=== PATIENT | female | born 1935 | race African-American/Black ===

== ENCOUNTER 2016-10-28 20:53 | Emergency (ER) | payer OTHER, MEDICARE ==
[~2016-10-28] VITALS: Ht 144.8 cm; Wt 74.8 kg
--- NOTE | ~2016-10-28 | CT16 ---
[facility] A Service of [facility] RADIOLOGY TEXT RESULTS PATIENT: TRICIA MOORE LOCATION: SED : 35 UNIT #: [id number] AGE: [address]: Jason Hansen MD SEX: F ORDER DR: [id number] [place] [id number] E MR#: [id number] Acc #: [id number] NAME: TRICIA MOORE. : 1935 SEX: F STUDY DATE/TIME: 10/28/2016 23:34 UNIT: SED ROOM: STUDY DESCRIPTION: CT Angio Chest for PE Attending Physician: Jason Hansen M.D. Ordering Physician: Jason Hansen M.D. Primary Care Physician: Almas Greene M.D. MEDICAL IMAGING REPORT This report is preliminary unless electronic signature is present. EXAM CT chest with contrast, pulmonary arteriography protocol, 10/28/2016 HISTORY 81-year-old female in the ED complaining of chest pain and diffuse body pain today. Back surgery [address] examination of the chest with IV contrast using pulmonary arteriography protocol. CTA MIP images of the pulmonary arteries were reformatted in multiple planes. This CT exam was performed with one or more of the following radiation dose reduction techniques: automatic exposure control, adjustment of mA and/or kV according to patient size, and iterative reconstruction. FINDINGS No pulmonary embolism is demonstrated. Thoracic aorta is normal in caliber with no aneurysm or dissection. Mild cardiomegaly. No pericardial effusion. The lungs are expanded and clear with the exception of mild scarring or atelectasis in the lung bases. No pneumothorax or pleural effusion. No suspicious mass or adenopathy within the chest. Generalized enlargement of the heterogeneous thyroid gland may represent multinodular goiter. Limited images through the uppermost abdomen show moderate extrahepatic bile duct dilatation with the common hepatic duct measuring about 1.7 cm and the common bile duct measuring up to 2.0 cm with mild intrahepatic bile duct dilatation. Cholecystectomy. Similar findings were present on the previous study of 08/31/2014. IMPRESSION [facility] A Service of [facility] RADIOLOGY TEXT RESULTS PATIENT: TRICIA MOORE [place] [facility] [place]IT #: [id number] AGE: [address]: Jason Hansen MD SEX: F ORDER DR: 1. No evidence of pulmonary embolism or other acute vascular abnormality within the chest. 2. Mild cardiomegaly. No pericardial effusion. 3. Mild scarring and/or atelectasis in the lung bases. Lungs clear. 4. Heterogeneous, diffusely enlarged thyroid gland. 5. Intrahepatic and extrahepatic bile duct dilatation as detailed above. Previous cholecystectomy. This is unchanged since 08/31/2014. Dictated by... Antonino Schaeffer M.D. THIS IS AN ELECTRONICALLY VERIFIED REPORT Antonino Schaeffer M.D. at 11/01/2016 11:06 PM Bela TD: 10/29/2016 13:08 JOB #: [id number] MEDICAL IMAGING REPORT Page 1 of 1
--- NOTE | ~2016-10-28 | EKG ---
PATIENT: TRICIA MOORE UNIT #: [id number] Ventricular Rate: 101 BPM Atrial Rate: 101 BPM P-R Interval: 88 ms QRS Duration: 116 ms Q-T Interval: 374 ms QTC Calculation(Bezet): 484 ms P Clinton: 119 degrees Calculated R Clinton: 7 degrees Calculated T Clinton: 147 degrees Diagnosis Line: Sinus tachycardia with short WA Diagnosis Line: Left ventricular hypertrophy with QRS widening and Diagnosis Line: repolarization abnormality Diagnosis Line: Abnormal ECG Diagnosis Line: When compared with ECG of 30-AUG-2014 22:04, Diagnosis Line: WA interval has decreased Diagnosis Line: Vent. rate has increased BY 38 BPM Diagnosis Line: ST now depressed in Lateral leads Diagnosis Line: T wave inversion no longer evident in Inferior Diagnosis Line: leads Diagnosis Line: T wave inversion now evident in Lateral leads Diagnosis Line: QT has lengthened Diagnosis Line: Confirmed by SAMY GARCIA MD ([id number]) on 10/29/2016 Diagnosis Line: 4:33:16 PM INTERPRETING MD: JOSE REDMOND
--- NOTE | ~2016-10-28 | CT71 ---
[facility] A Service of [facility] RADIOLOGY TEXT RESULTS PATIENT: TRICIA MOORE LOCATION: SED : 35 UNIT #: [id number] AGE: [address]: Jason Hansen MD SEX: F ORDER DR: [id number] [place] [id number] E MR#: [id number] Acc #: [id number] NAME: TRICIA MOORE. : 1935 SEX: F STUDY DATE/TIME: 10/28/2016 22:28 UNIT: SED ROOM: STUDY DESCRIPTION: CT Head Wo Contrast Attending Physician: Jason Hansen M.D. Ordering Physician: Jason Hansen M.D. Primary Care Physician: Almas Greene M.D. MEDICAL IMAGING REPORT This report is preliminary unless electronic signature is present. EXAM CT head, noncontrast, 10/28/2016. HISTORY 81-year-old female in the ED complaining of 2-month history of headache and neck pain. TECHNIQUE This CT exam was performed with one or more of the following radiation dose reduction techniques: automatic exposure control, adjustment of mA and/or kV according to patient size, and iterative reconstruction. FINDINGS No acute intracranial abnormality is identified. Minimal generalized cerebral cortical atrophy. Mild diffuse low-attenuation white matter changes are nonspecific, but likely related to chronic microvascular disease. Atheromatous calcification in the carotid siphons. These findings are stable since 08/30/2014. No evidence of intracranial hemorrhage, mass, mass effect, acute cerebral edema or progressive ventricular enlargement. Postoperative changes of previous extensive right middle ear and mastoid surgery, unchanged. IMPRESSION 1. No acute intracranial abnormality. 2. Mild diffuse chronic changes as noted above. 3. Previous right middle ear and mastoid surgery. 4. No change since 08/30/2014. Dictated by... Antonino Schaeffer M.D. [facility] A Service of [facility] RADIOLOGY TEXT RESULTS PATIENT: TRICIA MOORE LOCATION: SED : 35 UNIT #: [id number] AGE: [address]: Jason Hansen MD SEX: F ORDER DR: THIS IS AN ELECTRONICALLY VERIFIED REPORT Antonino Schaeffer M.D. at 11/01/2016 11:06 PM Raya TD: 10/29/2016 12:53 JOB #: [id number] MEDICAL IMAGING REPORT Page 1 of 1
--- NOTE | ~2016-10-28 | CT52 ---
[facility] A Service [facility] RADIOLOGY TEXT RESULTS PATIENT: TRICIA MOORE LOCATION: SED : 35 UNIT #: [id number] AGE: [address]: Jason Hansen MD SEX: F ORDER DR: [id number] [place] [id number] E MR#: [id number] Acc #: [id number] NAME: TRICIA MOORE. : 1935 SEX: F STUDY DATE/TIME: 10/28/2016 21:53 UNIT: SED ROOM: STUDY DESCRIPTION: CT Cervical Spine Wo Cont Attending Physician: Jason Hansen M.D. Ordering Physician: Jason Hansen M.D. Primary Care Physician: Almas Greene M.D. MEDICAL IMAGING REPORT This report is preliminary unless electronic signature is present. EXAM CT cervical spine 10/28/2016 HISTORY An 81-year-old female in the ED complaining of 2-month history of headache and neck pain. TECHNIQUE Thin-section axial CT images were obtained from the skull base through the lower portion of T-tube. Sagittal and coronal images were reconstructed. This CT exam was performed with one or more of the following radiation dose reduction techniques: automatic exposure control, adjustment of mA and/or kV according to patient size, and iterative reconstruction. FINDINGS No acute or chronic fracture deformity or additional osseous lesion is demonstrated. Moderate degenerative disc space narrowing and vertebral osteophyte formation is present throughout the cervical spine. Severe bilateral degenerative facet arthropathy is present bilaterally at multiple levels, greatest on the right at C3-C4 where there is severe osseous neural foraminal stenosis. Slight anterolisthesis at C5-6. IMPRESSION 1. No acute osseous abnormality. 2. Moderate multilevel degenerative disc space changes throughout the entire cervical spine. 3. Advanced bilateral degenerative facet arthropathy throughout the cervical spine, greatest on the right at C3-4 where there is severe osseous neural foraminal stenosis. 4. Slight anterolisthesis at C5-6. [facility] A Service of [facility] RADIOLOGY TEXT RESULTS PATIENT: TRICIA MOORE LOCATION: [facility] [place] : 35 UNIT #: [id number] AGE: [address]: Jason Hansen MD SEX: F ORDER DR: Dictated by... Antonino Schaeffer M.D. THIS IS AN ELECTRONICALLY VERIFIED REPORT Antonino Schaeffer M.D. at 11/01/2016 11:06 PM FOREST/janette TD: 10/29/2016 13:20 JOB #: [id number] MEDICAL IMAGING REPORT Page 1 of 1
[~2016-10-28 20:53] MED LIST: ACETAMINOPHEN650 M3 PO; AMLODIPINE BESY10 MG PO; ASPIRIN; ASPIRIN PO; ATORVASTATIN CA10 MG PO; CELECOXIB200 MG PO; CIPRO; CIPRO PO; CVS PHARMACY; DYAZIDE 37.5/251 CAP PO; FLONASE 0.05% N16 G1; FLONASE ALLERG9.9 ML IH; HCTZ; HCTZ PO; INDOMETHACIN25 MG PO; LOPRESSOR PO; LOTREL 5/10 MG1 CAP PO; MECLIZINE HCL12.5 MG PO; MEDROL DOSEPAK4 MG PO; MEDROL PO; METOPROLOL TART25 MG PO; MOTION RELIEF25 MG PO; NORVASC; NORVASC PO; NORVASC10 MG PO; PROTONIX PO; REGLAN10 MG PO; TOPROL XL; TOPROL XL PO; TYLENOL #3 PO; VICODIN 5/500 T1 TAB PO; ZANAFLEX4 M1 PO; ZANTAC; ZANTAC PO; ZANTAC150 MG PO; ZOFRAN PO
[2016-10-28] MEDS ORDERED: LORCET PLUS 7.1 EACH PO (21:07)
[2016-10-28 21:56] LABS: BASOPHIL# 0.1 X10e3 (0-0.3); BASOPHIL% 0.7 % (0-2.5); HEMATOCRIT 33.3 % (35.0-45.0); HEMOGLOBIN 10.9 gm/dL (12.0-16.0); LYMPHOCYTE# 1.2 X10e3 (1.0-3.5); LYMPHOCYTE% 10.3 % (17.0-45.0); MEAN CELL VOLUME 75.4 FL (83-96); MEAN CORPUSCULAR HEMOGLOBIN 24.7 PG (28-34); MEAN CORPUSCULAR HGB CONC 32.8 g/dL (30-36); MEAN PLATELET VOLUME 10.8 FL (6.5-11.5); MONOCYTE# 0.7 X10e3 (0-1.0); MONOCYTE% 6.5 % (3.0-12.0); NEUTROPHIL# 9.3 X10e3 (1.5-7.1); NEUTROPHIL% 82.5 % (40-75); PLATELET COUNT 196 X10e3 (140-420); RED BLOOD COUNT 4.41 X10e (3.90-5.30); RED CELL DISTRIBUTION WIDTH 16.5 % (11.0-15.5); WHITE BLOOD COUNT 11.2 X10e3 (4.0-10.5)
[2016-10-28 21:59] LABS: DIFF IND NO
[2016-10-28 22:03] LABS: INR 1.2; PROTHROMBIN TIME (PATIENT) 13.8 SECONDS (9.5-12.4)
[2016-10-28 22:09] LABS: ALBUMIN SERUM 3.9 g/dL (3.5-5.0); BILIRUBIN, DIRECT 0.3 mg/dL (0.0-0.2); BILIRUBIN,INDIRECT 0.9 mg/dL (0.0-0.9); BILIRUBIN,TOTAL 1.2 mg/dL (0.2-2.0); CALCIUM SERUM 9.6 mg/dL (8.4-10.2); GLOM FILT RATE Estimated 61.2 mL/min (>60); PROTEIN TOTAL SERUM 8.1 g/dL (6.0-8.3)
[2016-10-28 22:12] LABS: POTASSIUM 3.1 mmol/L (3.5-5.1); URINE APPEARANCE CLEAR; URINE BLOOD 1+ (NEG); URINE COLOR YELLOW; URINE GLUCOSE NEG (NORM); URINE KETONE 1+ (NEG); URINE LEUKOCYTE ESTERASE NEG (NEG); URINE NITRATE NEG (NEG); URINE PH 5.5 (5-8); URINE PROTEIN 1+ (NEG); URINE SOURCE CATH
[2016-10-28 22:13] LABS: MICRO INDICATED? YES; URINE BILIRUBIN NEG (NEG)
[2016-10-28 22:23] LABS: CULTURE INDICATED? NO; URINE AMORPHOUS SEDIMENT AMORP URATES; URINE BACTERIA NEG (NEG); URINE MUCUS PRESENT; URINE RBC 0-2 /[HPF] (0-2); URINE SQUAMOUS EPITHELIAL CELL FEW /[HPF]; URINE WBC 0-2 /[HPF] (0-5)
[2016-10-28 22:25] LABS: POC - CKMB 2.2 ng/mL (0.0-7.9)
[2016-10-28 22:26] LABS: POC - TROPONIN <0.05 ng/mL (<=0.05)
== END 2016-10-29 01:39 ==
LOC: SED 20:53
PROVIDERS: Emergency Medicine
DX: R51 Headache (principal); R07.9 Chest pain, unspecified; M54.2 Cervicalgia; M54.5 Low back pain; R50.9 Fever, unspecified; E87.6 Hypokalemia; R06.02 Shortness of breath; E78.5 Hyperlipidemia, unspecified; K21.9 Gastro-esophageal reflux disease without esophagitis; I10 Essential (primary) hypertension; Z86.73 Personal history of transient ischemic attack (TIA), and cerebral infarction without residual deficits
CPT/HCPCS: 36415; 51701; 70450; 71275; 72125; 80048; 80076; 81003; 82553; 83605; 83874; 84484; 85025; 85379; 85610; 85730; 87040; 93005; 96361; 96365; 96375; 99285; J0696; J2270; J2405; J3370; Q9967